=== PATIENT | male | born 1975 | race Caucasian/White ===

== ENCOUNTER → 2017-04-30 | Outpatient (CLI) | payer OTHER ==
[~2017-04-30] MED LIST: OXYC-57 PO
== END | disposition home or self-care (01) ==
LOC: C.CPL 12:14
PROVIDERS: ATTEND Surgery
DX: E66.01 Morbid (severe) obesity due to excess calories (principal); K42.9 Umbilical hernia without obstruction or gangrene

== ENCOUNTER → 2017-05-01 | Outpatient (CLI) | payer OTHER, BC ==
[2017-05-01 14:10] LABS: BASO % 0.3 %; BASO ABS # 0.03 K/uL (0-0.2); COMPLETE YES; EOS % 0.8 %; HEMATOCRIT 45.6 % (42-52); IG% 0.2 %; LYMPH % 24.7 %; LYMPH ABS # 2.47 K/uL (1.2-3.4); MEAN CELL VOLUME 87.4 fL (80-100); MEAN CORPUSCULAR HEMOGLOBIN 29.1 pg (25-34); MEAN CORPUSCULAR HGB CONC 33.3 g/dl (32-36); MEAN PLATELET VOLUME 10.8 fL (7.4-10.4); MONO % 6.1 %; NEUT % 67.9 %; PLATELET COUNT 285 K/uL (130-400); RED BLOOD COUNT 5.22 M/uL (4.7-6.1); WHITE BLOOD COUNT 9.98 K/uL (4.8-10.8)
[2017-05-01 14:33] LABS: BLOOD UREA NITROGEN 14 mg/dl (7-18); BUN/CREATININE RATIO 14.4 (10-20); CALCIUM 8.9 mg/dl (8.5-10.1); CARBON DIOXIDE 30 mmol/L (21-32); CHLORIDE 107 mmol/L (98-107); GLUCOSE 88 mg/dl (70-99); POTASSIUM 3.9 mmol/L (3.5-5.1); SODIUM 141 mmol/L (136-145)
== END | disposition home or self-care (01) ==
LOC: C.LAB 12:53
PROVIDERS: ATTEND Surgery
DX: Z01.812 Encounter for preprocedural laboratory examination (principal)

== ENCOUNTER → 2017-05-03 | Day surgery (SDC) | payer OTHER, BC ==
[2017-05-01 14:39] VITALS: BMI 34.0; BMI 49.0
[~2017-05-03] VITALS: Ht 175.3 cm; Wt 150.9 kg
[~2017-05-03] MED LIST changes: +ATROPINE SULFATE 0.1 MG/ML 5ML SYR IV PRN; +BUPIVACAINE 0.5 % 5 MG/1 ML MPF 30ML VIAL ONE; +CEFAZOLIN 3000 MG/65 ML D5W IV SCH; +DEXAMETHASONE SOD INJ 4 MG/ML VIAL ONE; +EpHEDrine SULFATE INJ 50 MG/ML AMP IV PRN; +FENTANYL CITRATE INJ 50 MCG/1 ML 2 ML VIAL IV PRN; +FENTANYL CITRATE INJ 50 MCG/1 ML 2 ML VIAL ONE; +LACTATED RINGER'S 1000ML 1,000 ML IV SCH; +LACTATED RINGER'S 1000ML 500 ML IV ONE; +LARYING-O-JET KIT (LTA) ONE; +LIDOCAINE HCL 2% 2 ML VIAL (20MG/ML) ONE; +MIDAZOLAM HCL 1 MG/ML 2ML VIAL ONE; +MoRPHine SULFATE 4 MG/ML 1 ML CARP\\VIAL IV PRN; +ONDANSETRON INJ 2 MG/ML 2 ML VIAL IV PRN; +ONDANSETRON INJ 2 MG/ML 2 ML VIAL ONE; +OXYCODONE/ACETAMINOPHEN 5-325 TAB ONE; +OXYCODONE/ACETAMINOPHEN 5-325 TAB PO PRN; +PROPOFOL IV EMULSION 10 MG/ML 20 ML VIAL IV ONE; +ROCURONIUM BROMIDE 10 MG/ML 5 ML VIAL IV ONE; +SUCCINYLCHOLINE CHLORIDE 20 MG/ML 10 ML VIAL IV ONE
[2017-05-03 05:47] VITALS: BP 144/92; PULSE 66; TEMP 36.9; O2SAT 96; Ht 175.3 cm; Wt 150.9 kg
--- NOTE | 2017-05-03 07:02 | History & Physical Bridge Note ---
H&P Re-Evaluation Bridge Note: I have examined the patient, reviewed the History & Physical and in the interval since the performance of the History & Physical I have noted the following changes of clinical significance: Plan for umbilical hernia repair with possible mesh. No changes noted
--- NOTE | 2017-05-03 08:35 | [facility] Post Operative Brief Note ---
Immediate Operative Summary Operative Date May 03, 2017. Pre-Operative Diagnosis Incarcerated Umbilical Hernia Post-Operative Diagnosis Incarcerated Umbilical Hernia Procedure(s) Performed Open Incarcerated Umbilical Hernia Repair With Mesh Surgeon Publishing Systems Analyst Surgeon(s) Winston Worthington PA-C Estimated Blood Loss 3ml Findings large incarcerated hernia, hernia sac opened, omentum viable and reduced. 6.4 cm cqur hernia patch placed with 0 nurolon. good hemostasis Specimens A. Hernia Sac Anesthesia GETA Complication(s) None Disposition Recovery Room / PACU
--- NOTE | 2017-05-03 08:42 | Discharge Instructions ---
Discharge Instructions Date of Service May 03, 2017. Visit Reason for Visit: Incarcerated Umbilical Hernia Discharge Discharge Diagnosis / Problem: Umbilical hernia repair Discharge Goals Goal(s): Decrease discomfort Activity Recommendations Activity Limitations: as noted below Lifting Limitations: no more than 10 pounds Shower/Bathe: tomorrow Driving or Machine Use: resume 3 days after discharge (if not taking Percocet) Anesthesia . Post Anesthesia Instructions: If you have had General Anesthesia or IV Sedation: * Do not drive today. * Resume driving when surgeon permits. * Do not make important decisions or sign legal documents today. * Call surgeon for: 1. Temperature elevations greater than 101 degrees F. 2. Uncontrollable pain. 3. Excessive bleeding. 4. Persistent nausea and vomiting. 5. Medication intolerance (nausea, vomiting or rash). * For nausea and vomiting use only clear liquids such as: tea, soda, bouillon until nausea subsides, then gradually increase diet as tolerated. * If you have any concerns or questions, call your surgeon's office. If physician is unavailable and it is an emergency, call 911 or go to the nearest emergency room. . Instructions / Follow-Up Instructions / Follow-Up Dr. Nava in 1-2 weeks as planned, call [phone] for any questions You may take ibuprofen 600 mg every 6 hours in addition to Percocet Remove bandage in a day or two, you can shower over it tonight or tomorrow, it is waterproof Diet Recommendations Recommended Home Diet: no limitations Procedures Procedures Performed: Open Incarcerated Umbilical Hernia Repair With Mesh Pending Studies Studies pending at discharge: no Medical Emergencies . Who to Call and When: Medical Emergencies: If at any time you feel your situation is an emergency, please call 911 immediately. . Non-Emergent Contact Non-Emergency issues call your: Surgeon Call Non-Emergent contact if: you have a fever, temperature is above 101.5, your pain is not controlled, wound has increased redness, you have any medication questions . . "Provider Documentation" section prepared by Ivan Worthington. .
--- NOTE | 2017-05-03 08:42 | [facility] Operative Report ---
Operative Report Operative Date May 03, 2017. Pre-Operative Diagnosis Incarcerated Umbilical Hernia Post-Operative Diagnosis incarcerated umbilical hernia Procedure(s) Performed incarcerated umbilical hernia repair with mesh Surgeon Biotech Production Specialist Surgeon(s) Winston Worthington PA-C Estimated Blood Loss 3ml Findings large incarcerated hernia, hernia sac opened, omentum viable and reduced. 6.4 cm cqur hernia patch placed with 0 nurolon. good hemostasis Specimens A. Hernia Sac Anesthesia GETA Complication(s) None Disposition Recovery Room / PACU Indications 41 year old obese male with incarcerated umbilical hernia, plan for open umbilical hernia repair possibly with mesh. The risks of the procedure were discussed, all questions were answered, and the patient agreed to proceed with surgery as planned. Description of Procedure The patient was properly identified, consented, and taken to the operating room where he was placed in the supine position. General endotracheal anesthesia was induced. SCDs and a safety belt were placed. Preoperative antibiotics were administered. The patient's abdomen was prepped and draped in the standard sterile fashion. Surgical timeout was performed and all parties were in agreement that this was the correct patient and procedure to be performed and we continued as planned. A curvilinear infraumbilical incision was made and deepened down to the fascia with blunt dissection. The umbilical stalk was circumferentially dissected with a Nirali, and divided below the level of the skin. A 2mm defect was created at the base of the umbilicus and repaired with vicryl suture. A large incarcerated hernia was identified. The hernia sac was circumferentially dissected and then opened. A large amount of viable omentum was encountered and reduced in the abdomen. A 3.5 cm fascial defect was encountered. The fascia anteriorly and posteriorly was cleared of investing tissue for several centimeters. Hemostasis was achieved within the wound. A piece of c-qur hernia mesh was sown into place with interrupted 0 Nurolon sutures in a clockwise fashion, and the fascia was closed with interrupted 0 Nurolon sutures. The wound was irrigated and hemostasis confirmed. The umbilicus was tacked down to the fascia with 3-0 Vicryl sutures. Local anesthetic in the form of 0.5% Marcaine was injected in the fascia and along the skin incision. The skin was closed with interrupted 3-0 Vicryl deep dermal sutures, followed by 4-0 Monocryl running subcuticular suture. Dermabond was placed over the wound, and a pressure dressing was placed. The patient was extubated in the operating room and taken to the PACU where he recovered without apparent incident. All sponge, instrument and needle counts were correct at the conclusion of the procedure. The patient tolerated the procedure well. I attest to the content of the Intraoperative Record and any orders documented therein. Any exceptions are noted below.
--- NOTE | 2017-05-03 09:42 | Anesthesiology Progress Note ---
Anesthesia Post Op Note Date & Time May 03, 2017 at 09:41 Vital Signs Pain Intensity: 2 Vital Signs Past 12 Hours Date Time Temp Pulse Resp B/P (MAP) Pulse Ox O2 Delivery O2 Flow Rate FiO2 05/03/17 09:36 140/89 05/03/17 09:35 77 16 95 05/03/17 09:35 75 16 05/03/17 09:31 138/74 05/03/17 09:30 76 12 97 05/03/17 09:30 77 12 05/03/17 09:26 120/103 05/03/17 09:25 81 14 05/03/17 09:25 82 14 90 05/03/17 09:24 36.4 148/95 05/03/17 09:21 149/97 05/03/17 09:20 70 15 93 05/03/17 09:20 69 15 05/03/17 09:16 143/90 05/03/17 09:15 74 11 05/03/17 09:15 Room Air 05/03/17 09:15 77 11 100 05/03/17 09:11 146/99 05/03/17 09:10 66 15 98 05/03/17 09:10 66 15 05/03/17 09:06 149/99 05/03/17 09:05 74 17 05/03/17 09:05 74 17 147/100 99 05/03/17 09:01 159/101 05/03/17 09:00 66 18 05/03/17 09:00 66 18 98 05/03/17 08:55 69 20 05/03/17 08:55 69 20 146/101 96 05/03/17 08:51 147/107 05/03/17 08:50 72 22 98 05/03/17 08:50 73 22 05/03/17 08:50 36.2 70 19 147/107 99 Oxymask 10 05/03/17 05:47 36.9 66 18 144/92 (109) 96 Room Air Notes Mental Status: alert / awake / arousable, participated in evaluation Pt Amnestic to Procedure: Yes Nausea / Vomiting: adequately controlled Pain: adequately controlled Airway Patency, RR, SpO2: stable & adequate BP & HR: stable & adequate Hydration State: stable & adequate Anesthetic Complications: no major complications apparent
[2017-05-03 09:50] VITALS: BP 135/69; PULSE 71; TEMP 36.9; O2SAT 95
[2017-05-03 10:20] VITALS: BP 124/65; PULSE 77; O2SAT 95
[2017-05-03 10:50] VITALS: BP 119/62; PULSE 72; TEMP 36.9; O2SAT 95
[2017-05-03 11:10] VITALS: BP 135/84
== END | disposition home or self-care (01) ==
LOC: EDBD → C.ACU 05:29 → MERGE 07:15
PROVIDERS: ATTEND Surgery
DX: K42.0 Umbilical hernia with obstruction, without gangrene (principal); E66.01 Morbid (severe) obesity due to excess calories; Z68.42 Body mass index [BMI] 45.0-49.9, adult